=== PATIENT | male | born 1940 | race Caucasian/White ===

== ENCOUNTER → 2017-06-19 | Outpatient (CLI) | payer BC | END | disposition home or self-care (01) | LOC: US 17:34 | PROC: B54CZZZ Ultrasonography of Left Lower Extremity Veins (ICD-10-PCS; principal; 2017-06-19) | DX: M79.89 Other specified soft tissue disorders (principal) ==

== ENCOUNTER 2017-06-23 14:25 | Inpatient (IN) | payer BC ==
[~2017-06-23] VITALS: Ht 167.6 cm; Wt 105.0 kg
[2017-06-23] MEDS ORDERED: ALDACTONE25 MG PO (15:36)
[2017-06-23] MEDS ORDERED: LASIX20 MG PO (15:37)
[2017-06-23] MEDS ORDERED: ASPIR 8181 MG PO (15:37)
[2017-06-23] MEDS ORDERED: LOSARTAN POTASS1 TA6 PO (15:38)
[2017-06-23] MEDS ORDERED: ATENOLOL50 MG PO (15:38)
[2017-06-23] MEDS ORDERED: CLINDAMYCIN HC300 MG PO (15:39)
[2017-06-23 16:15] LABS: BASOPHIL % 0.1 % (0-2); PLATELET COUNT 348 x10^3mcL (130-400); RED CELL DISTRIBUTION WIDTH 13.1 % (11.5-14.5)
[2017-06-23 16:23] LABS: CALCIUM 9.2 mg/dL (8.5-10.1); CARBON DIOXIDE 24.4 mmol/L (21-32); CHLORIDE SERUM 95 mmol/L (98-107); CREATININE SERUM 3.5 mg/dL (0.7-1.3); GLUCOSE SERUM 111 mg/dL (74-106); SODIUM SERUM 132 mmol/L (136-145)
[2017-06-23 16:28] LABS: ALBUMIN 2.7 g/dL (3.4-5.0); ALKALINE PHOSPHATASE 83 U/L (46-116); ALT/SGPT 21 U/L (16-63); AST/SGOT 23 U/L (15-37); BILIRUBIN TOTAL 0.64 mg/dL (0.20-1.00); TOTAL PROTEIN, SERUM 8.6 g/dL (6.4-8.2)
[2017-06-23 18:54] VITALS: BP 115/55
[2017-06-23 18:57] VITALS: Ht 167.6 cm; Wt 105.0 kg
[2017-06-23 19:18] LABS: MAGNESIUM 2.1 mg/dL (1.8-2.4); PHOSPHOROUS 5.7 mg/dL (2.5-4.9)
[2017-06-23 19:19] LABS: CHOLESTEROL/HDL RATIO 3.4
[2017-06-23 19:31] LABS: FREE T4 1.46 ng/dL (0.76-1.46); FREE THYROXINE INDEX 3.2 ug/dL (1.4-4.5); T4(THYROXINE) 9.2 ug/dL (4.7-13.3)
[2017-06-23 19:58] LABS: T3 TOTAL 0.88 ng/mL
[2017-06-23 21:06] VITALS: BP 104/43
[2017-06-24 05:26] VITALS: BP 104/48
[2017-06-24 06:33] LABS: microscopic required? NO
[2017-06-24 07:01] LABS: CALCIUM 8.8 mg/dL (8.5-10.1); CARBON DIOXIDE 23.2 mmol/L (21-32); CHLORIDE SERUM 99 mmol/L (98-107); CREATININE SERUM 2.6 mg/dL (0.7-1.3); GLUCOSE SERUM 100 mg/dL (74-106); PHOSPHOROUS 5.3 mg/dL (2.5-4.9); POTASSIUM SERUM 3.6 mmol/L (3.5-5.1); SODIUM SERUM 135 mmol/L (136-145)
[2017-06-24 08:00] VITALS: BP 96/38
[2017-06-24 08:01] LABS: urine erythrocyte NEGATIVE (NEGATIVE)
[2017-06-24 08:04] LABS: BASOPHIL % 0.2 % (0-2); PLATELET COUNT 286 x10^3mcL (130-400); RED CELL DISTRIBUTION WIDTH 12.9 % (11.5-14.5)
[2017-06-24 08:22] LABS: AMPHETAMINE QUAL UR NONE DETECTED (NEG <=1000)
[2017-06-24 12:50] VITALS: BP 116/51
[2017-06-24 16:35] VITALS: BP 118/85
[2017-06-24 20:13] VITALS: BP 119/50
[2017-06-25 04:53] VITALS: BP 151/61
[2017-06-25 06:29] LABS: CALCIUM 9.4 mg/dL (8.5-10.1); CARBON DIOXIDE 25.4 mmol/L (21-32); CHLORIDE SERUM 101 mmol/L (98-107); CREATININE SERUM 1.3 mg/dL (0.7-1.3); GLUCOSE SERUM 120 mg/dL (74-106); MAGNESIUM 1.8 mg/dL (1.8-2.4); PHOSPHOROUS 3.5 mg/dL (2.5-4.9); POTASSIUM SERUM 3.9 mmol/L (3.5-5.1); SODIUM SERUM 137 mmol/L (136-145)
[2017-06-25 06:32] LABS: BASOPHIL % 0.2 % (0-2); PLATELET COUNT 326 x10^3mcL (130-400); RED CELL DISTRIBUTION WIDTH 12.8 % (11.5-14.5)
[2017-06-25 09:55] VITALS: BP 122/50
[2017-06-25 12:42] VITALS: BP 96/45
[2017-06-25 17:28] VITALS: BP 146/56
[2017-06-25 21:22] VITALS: BP 116/64
[2017-06-26 06:09] VITALS: BP 128/67
[2017-06-26 06:27] LABS: CALCIUM 8.8 mg/dL (8.5-10.1); CHLORIDE SERUM 102 mmol/L (98-107); CREATININE SERUM 1.1 mg/dL (0.7-1.3); GLUCOSE SERUM 103 mg/dL (74-106); MAGNESIUM 1.6 mg/dL (1.8-2.4); PHOSPHOROUS 3.9 mg/dL (2.5-4.9); SODIUM SERUM 137 mmol/L (136-145)
[2017-06-26 07:09] LABS: BASOPHIL % 0.3 % (0-2); PLATELET COUNT 321 x10^3mcL (130-400)
[2017-06-26 09:00] VITALS: BP 140/59
[2017-06-26 11:40] VITALS: BP 114/53
[2017-06-26 11:46] VITALS: BP 114/53
[2017-06-26] MEDS ORDERED: NOR10 PO (15:08)
[2017-06-26] MEDS ORDERED: [UNRECOGNIZED DRUG - CODE] IV (15:31)
[2017-06-26] MEDS ORDERED: LAC PO (15:31)
[2017-06-26 16:33] VITALS: BP 128/82
== END 2017-06-26 20:35 | DRG 602 ==
LOC: ED 14:25 → DU 16:43 → MU 16:43 → DU 18:35 → MU 06-25 08:21
PROVIDERS: Emergency Medicine; Family Medicine
DX: L03.116 Cellulitis of left lower limb (principal); N17.0 Acute kidney failure with tubular necrosis; I50.43 Acute on chronic combined systolic (congestive) and diastolic (congestive) heart failure; E87.1 Hypo-osmolality and hyponatremia; I13.0 Hypertensive heart and chronic kidney disease with heart failure and stage 1 through stage 4 chronic kidney disease, or unspecified chronic kidney disease; N18.9 Chronic kidney disease, unspecified; I89.0 Lymphedema, not elsewhere classified; L85.3 Xerosis cutis; E83.39 Other disorders of phosphorus metabolism; E78.5 Hyperlipidemia, unspecified; D64.9 Anemia, unspecified; E66.9 Obesity, unspecified; Z68.37 Body mass index [BMI] 37.0-37.9, adult
CPT/HCPCS: 83880; 84439; 97110-GP; 97116-GP; 97530-GP; J0696; J1644; J2405; J3490; J7030; Q0092

== ENCOUNTER 2018-05-16 13:28 | Inpatient (IN) | payer BC ==
[~2018-05-16] VITALS: Ht 170.2 cm; Wt 108.0 kg
[~2018-05-16 13:28] MED LIST: ALDACTONE25 MG PO; ASPIR 8181 MG PO; ATENOLOL50 MG PO; CLINDAMYCIN HC300 MG PO; LAC PO; LASIX20 MG PO; LOSARTAN POTASS1 TA6 PO; NOR10 PO; [UNRECOGNIZED DRUG - CODE] IV
[2018-05-16 14:36] LABS: PLATELET COUNT 167 x10^3mcL (130-400)
[2018-05-16 14:43] LABS: CALCIUM 8.9 mg/dL (8.5-10.1); CARBON DIOXIDE 25.1 mmol/L (21-32); CHLORIDE SERUM 94 mmol/L (98-107); CREATININE SERUM 1.6 mg/dL (0.7-1.3); GLUCOSE SERUM 142 mg/dL (74-106); POTASSIUM SERUM 3.2 mmol/L (3.5-5.1); SODIUM SERUM 129 mmol/L (136-145)
[2018-05-16 14:47] LABS: ALKALINE PHOSPHATASE 68 U/L (46-116); ALT/SGPT 20 U/L (16-63); AST/SGOT 32 U/L (15-37); BILIRUBIN TOTAL 0.6 mg/dL (0.20-1.00)
[2018-05-16 14:48] LABS: TOTAL PROTEIN, SERUM 8.6 g/dL (6.4-8.2)
[2018-05-16 14:50] LABS: SEGMENTED NEUTROPHILS 80 % (37-75)
[2018-05-16 14:51] LABS: BAND NEUTROPHIL 0 % (0-10); MONOCYTE 9 % (0-7); PLATELET MORPHOLOGY PLATELETS DECREASED; rbc morphology (normal/abnorm) ABNORMAL (NORMAL)
[2018-05-16] MEDS ORDERED: PENTOXIFYL XR400 M1 PO (20:57)
[2018-05-16] MEDS ORDERED: LOSARTAN POTASS50 M1 PO (20:59)
[2018-05-16] MEDS ORDERED: ALLOPURINOL100 MG PO (20:59)
[2018-05-16] MEDS ORDERED: ATENOLOL50 MG PO (21:01)
[2018-05-16 22:14] VITALS: BP 139/72
[2018-05-17 05:51] VITALS: BP 136/56
[2018-05-17 07:51] LABS: ALKALINE PHOSPHATASE 76 U/L (46-116); ALT/SGPT 7 U/L (16-63); AST/SGOT 32 U/L (15-37); BILIRUBIN TOTAL 0.45 mg/dL (0.20-1.00); CALCIUM 8.2 mg/dL (8.5-10.1); CARBON DIOXIDE 22.9 mmol/L (21-32); CHLORIDE SERUM 99 mmol/L (98-107); CREATININE SERUM 1.4 mg/dL (0.7-1.3); GLUCOSE SERUM 125 mg/dL (74-106); MAGNESIUM 2.3 mg/dL (1.8-2.4); POTASSIUM SERUM 3.6 mmol/L (3.5-5.1); SODIUM SERUM 134 mmol/L (136-145); TOTAL PROTEIN, SERUM 8.1 g/dL (6.4-8.2)
[2018-05-17 07:54] LABS: ALBUMIN 2.9 g/dL (3.4-5.0)
[2018-05-17 08:09] LABS: PLATELET COUNT 175 x10^3mcL (130-400); RED CELL DISTRIBUTION WIDTH 12.4 % (11.5-14.5)
[2018-05-17 10:12] VITALS: BP 159/85
[2018-05-17 12:55] VITALS: BP 154/68
[2018-05-17 14:04] LABS: BAND NEUTROPHIL 1 % (0-10); MONOCYTE 7 % (0-7); SEGMENTED NEUTROPHILS 87 % (37-75); rbc morphology (normal/abnorm) NORMAL (NORMAL)
[2018-05-17 14:05] LABS: PLATELET MORPHOLOGY PLATELETS NORMAL
[2018-05-17 18:04] VITALS: BP 112/40
[2018-05-17 21:40] VITALS: BP 118/29
[2018-05-18 05:37] VITALS: BP 113/52
[2018-05-18 07:05] LABS: PLATELET COUNT 223 x10^3mcL (130-400); RED CELL DISTRIBUTION WIDTH 12.4 % (11.5-14.5)
[2018-05-18 07:16] LABS: CALCIUM 8.9 mg/dL (8.5-10.1); CARBON DIOXIDE 26.4 mmol/L (21-32); CHLORIDE SERUM 101 mmol/L (98-107); CREATININE SERUM 1.3 mg/dL (0.7-1.3); GLUCOSE SERUM 117 mg/dL (74-106); SODIUM SERUM 136 mmol/L (136-145)
[2018-05-18 10:24] VITALS: BP 141/73
[2018-05-18 12:41] LABS: BAND NEUTROPHIL 11 % (0-10); MONOCYTE 8 % (0-7); SEGMENTED NEUTROPHILS 76 % (37-75); rbc morphology (normal/abnorm) NORMAL (NORMAL)
[2018-05-18 12:42] LABS: PLATELET MORPHOLOGY PLATELETS NORMAL
[2018-05-18 13:50] VITALS: BP 109/59
[2018-05-18 16:22] VITALS: Ht 170.2 cm; Wt 108.0 kg
[2018-05-18 18:10] VITALS: BP 133/58
[2018-05-18 21:11] VITALS: BP 115/47
[2018-05-19 05:48] VITALS: BP 127/61
[2018-05-19 07:03] LABS: PLATELET COUNT 255 x10^3mcL (130-400); RED CELL DISTRIBUTION WIDTH 12.3 % (11.5-14.5)
[2018-05-19 07:09] LABS: BASOPHIL % 0 % (0-2)
[2018-05-19 07:36] LABS: CARBON DIOXIDE 25.3 mmol/L (21-32); CHLORIDE SERUM 99 mmol/L (98-107); CREATININE SERUM 1.2 mg/dL (0.7-1.3); GLUCOSE SERUM 112 mg/dL (74-106); POTASSIUM SERUM 3.4 mmol/L (3.5-5.1); SODIUM SERUM 134 mmol/L (136-145)
[2018-05-19 08:28] VITALS: BP 138/57
[2018-05-19 12:22] VITALS: BP 132/64
[2018-05-19 16:43] VITALS: BP 134/64
[2018-05-19 20:48] VITALS: BP 132/61
[2018-05-20 05:48] LABS: BASOPHIL % 0.6 % (0-2); PLATELET COUNT 270 x10^3mcL (130-400); RED CELL DISTRIBUTION WIDTH 13.3 % (11.5-14.5)
[2018-05-20 06:01] VITALS: BP 116/56
[2018-05-20 06:09] LABS: CALCIUM 8.3 mg/dL (8.5-10.1); CARBON DIOXIDE 25.2 mmol/L (21-32); CHLORIDE SERUM 99 mmol/L (98-107); CREATININE SERUM 1.2 mg/dL (0.7-1.3); GLUCOSE SERUM 115 mg/dL (74-106); POTASSIUM SERUM 3.3 mmol/L (3.5-5.1); SODIUM SERUM 133 mmol/L (136-145)
[2018-05-20 07:55] VITALS: BP 101/51
[2018-05-20 12:14] VITALS: BP 127/71
[2018-05-20 16:23] VITALS: BP 163/71
[2018-05-20 22:00] VITALS: BP 145/77
[2018-05-21 05:29] VITALS: BP 115/52
[2018-05-21 06:32] LABS: PLATELET COUNT 309 x10^3mcL (130-400); RED CELL DISTRIBUTION WIDTH 13.1 % (11.5-14.5)
[2018-05-21 06:56] LABS: CALCIUM 8.9 mg/dL (8.5-10.1); CARBON DIOXIDE 22.9 mmol/L (21-32); CHLORIDE SERUM 102 mmol/L (98-107); GLUCOSE SERUM 127 mg/dL (74-106); POTASSIUM SERUM 3.4 mmol/L (3.5-5.1); SODIUM SERUM 135 mmol/L (136-145)
[2018-05-21 09:59] VITALS: BP 144/79
[2018-05-21 13:13] LABS: ATYPICAL LYMPH 1 %; BAND NEUTROPHIL 2 % (0-10); BASOPHIL 0 % (0-2); MONOCYTE 7 % (0-7); SEGMENTED NEUTROPHILS 83 % (37-75)
[2018-05-21 13:14] LABS: PLATELET MORPHOLOGY PLATELETS INCREASED; rbc morphology (normal/abnorm) NORMAL (NORMAL)
[2018-05-21 14:23] VITALS: BP 148/87
[2018-05-21 18:31] VITALS: BP 138/57
[2018-05-21 20:19] VITALS: BP 148/66
[2018-05-22 05:33] VITALS: BP 139/76
[2018-05-22 06:04] LABS: PLATELET COUNT 312 x10^3mcL (130-400); RED CELL DISTRIBUTION WIDTH 13.4 % (11.5-14.5)
[2018-05-22] MEDS ORDERED: CLEOCIN HCL300 MG PO (08:25)
[2018-05-22] MEDS ORDERED: SENNA8.6 M2 PO (08:26)
[2018-05-22 09:30] LABS: BAND NEUTROPHIL 5 % (0-10); BASOPHIL 0 % (0-2); METAMYELOCTE 8 % (0-2); MONOCYTE 5 % (0-7); SEGMENTED NEUTROPHILS 75 % (37-75); rbc morphology (normal/abnorm) NORMAL (NORMAL)
[2018-05-22 09:53] VITALS: BP 138/63
[2018-05-22 11:22] VITALS: BP 138/63
[2018-05-22 12:58] VITALS: BP 128/92
== END 2018-05-22 14:20 | disposition home health service (06) | DRG 603 ==
LOC: ED 13:28 → DU 19:11
PROVIDERS: Emergency Medicine; Internal Medicine; ADMIT Internal Medicine Pulmonary Disease
DX: L03.115 Cellulitis of right lower limb (principal); K56.7 Ileus, unspecified; E87.1 Hypo-osmolality and hyponatremia; N17.9 Acute kidney failure, unspecified; L03.314 Cellulitis of groin; I89.0 Lymphedema, not elsewhere classified; R09.1 Pleurisy; E86.0 Dehydration; K59.00 Constipation, unspecified; I10 Essential (primary) hypertension; E66.9 Obesity, unspecified; Z71.3 Dietary counseling and surveillance; Z68.37 Body mass index [BMI] 37.0-37.9, adult; Z22.322 Carrier or suspected carrier of Methicillin resistant Staphylococcus aureus
CPT/HCPCS: 83880; 85378; J0696; J2270; J2405; J3370; J3490; J7030; J7050; Q0092; Q9967